=== PATIENT | male | born 1965 | race Caucasian/White ===

== ENCOUNTER 2017-08-26 12:40 | Emergency (ER) | payer OTHER ==
[~2017-08-26] VITALS: Ht 182.9 cm; Wt 131.5 kg
[~2017-08-26 12:40] MED LIST: ARAVA20 MG PO; ASPIRIN325 PO; ATORVASTATIN CA10 MG PO; CALCIUM 500+D1 EAC2 PO; CARDIZEM CD120 MG PO; CARDIZEM CD240 MG PO; CELEXA40 MG PO; CENTRUM SILVER1 EAC4 PO; CYCLOBENZAPRINE10 MG PO; DIABETA 5MG TABL5 MG PO; DIGOXIN250 MCG PO; ETODOLAC500 MG PO; FLECAINIDE ACE100 MG PO; FLOMAX PO; FOLIC ACID PO; FOLIC ACID1 MG PO; FUROSEMIDE 20 M20 M1 PO; FUROSEMIDE 40 M40 M1 PO; HYDROCHLOROTH12.5 MG PO; HYDROCODONE-AP1 EAC6 PO; HYDROXYCHLOROQ200 M1 PO; IBUPROFEN 600600 M1 PO; LASIX 20 MG TAB20 MG PO; LOPRESSOR50 PO; METFORMIN HCL500 MG PO; MULTIVITAMINS PO; NORCO 5-325 TA1 EACH PO; OXYCODONE HCL 55 MG PO; PERCOCET 7.5-31 EACH PO; POTASSIUM20 PO; PROPRANOLOL 4040 M1 PO; SOTALOL 120 MG120 M1 PO; TOPROL XL100 MG PO; TOPROL XL50 MG PO; VITAMIN D31000 UNIT PO; XARELTO10 MG PO; XARELTO20 MG PO
[2017-08-26] MEDS ORDERED: GLUCOTROL5 MG PO (12:57)
[2017-08-26] MEDS ORDERED: LOVASTATIN 20 M20 MG PO (12:57)
[2017-08-26] MEDS ORDERED: CELEXA40 MG PO (12:57)
[2017-08-26] MEDS ORDERED: DIGOXIN250 MCG PO (12:57)
[2017-08-26] MEDS ORDERED: JANUVIA 50 MG T50 MG PO (12:57)
[2017-08-26] MEDS ORDERED: GABAPENTIN 100100 MG PO (12:57)
[2017-08-26] MEDS ORDERED: CENTRUM SILVER1 EAC2 PO (12:58)
[2017-08-26] MEDS ORDERED: ARAVA20 MG PO (12:58)
[2017-08-26 14:25] LABS: ABSOLUTE BASOPHILS 0.1 thou/uL (0.0-0.2); ABSOLUTE EOSINOPHILS 0.3 thou/uL (0.0-0.7); ABSOLUTE LYMPHOCYTES 1.9 thou/uL (0.8-5.3); ABSOLUTE MONOCYTES 1.4 thou/uL (0.0-1.2); ABSOLUTE NEUTROPHILS 8.5 thou/uL (1.6-8.1); BASOPHILS 0.6 %; EOSINOPHILS 2.4 %; HEMATOCRIT 42.3 % (42.0-52.0); HEMOGLOBIN 14.2 gm/dL (14.0-18.0); LYMPHOCYTES 15.3 %; MCH 30.3 pg (26.0-34.0); MCHC 33.5 g/dL (28.0-37.0); MCV 90.6 fL (80.0-100.0); MONOCYTES 11.4 %; MPV 9.2 fl. (7.2-11.1); NUCLEATED RBCS 0 /100WBC; PLATELET COUNT* 193 thou/uL (150-400); POLYS 70.3 %; RBC 4.67 mil/uL (4.50-6.00); RDW-CV 14.9 % (10.5-14.5); WBC 12.1 thou/uL (4.0-11.0)
[2017-08-26 14:37] LABS: CALCIUM 8.7 mg/dL (8.5-10.1); CREATININE 0.7 mg/dL (0.6-1.3); POTASSIUM 3.8 mmol/L (3.5-5.1)
[2017-08-26 14:42] LABS: TOTAL PROTEIN 7.7 g/dL (6.4-8.2)
[2017-08-26 14:43] LABS: INFLUENZA A ANTIGEN None Detected (None Detect); INFLUENZA B ANTIGEN None Detected (None Detect)
[2017-08-26] MEDS ORDERED: DOXYCYCLINE 10100 M1 PO (15:05)
[2017-08-26] MEDS ORDERED: ERYTHROMYCIN E3.5 G3 OPHTHALMIC (15:05)
[2017-08-26] MEDS ORDERED: MUCINEX600 MG PO (15:07)
[2017-08-26 15:21] VITALS: BP 146/81
--- NOTE | 2017-08-27 14:17 | EKG ---
[place] [address] ELECTROCARDIOGRAM REPORT Name: PAPO ROYAL [id number] Admission: 08/26/17 Attend Phys: Discharge: 08/26/17 Date of : 61 Report #: [id number] THIS REPORT FOR: //name// [facility] ED Test Date: 2017-08-26 Test Time: 13:41:43 Pat Name: PAPO ROYAL Department: Room: Gender: Cashier Parking Lot: [employer] HIGHTOWER : 1965 Requested By: Andrea Santos Order Number: [id number] MD: Jaden Choi Measurements Intervals [place] Rate: 83 P: [place]: QRS: 58 QRSD: 118 T: 9 QT: 405 QTc: 476 Interpretive Statements Atrial fibrillation incomplete RBBB Low voltage, precordial leads Compared to ECG 08/08/2015 20:33: Low QRS voltage now present Electronically Signed On 08-27-2017 14:17:07 [employer] WR[employer] by Jaden Choi [email or web address] <ELECTRONICALLY SIGNED> By: Jaden Choi MD, [facility] 08/27/17 1417 1341 40 Jaden Choi MD, FACC /EPI
== END 2017-08-26 15:21 | disposition home or self-care (01) ==
LOC: M.ERS 12:40
PROVIDERS: Physician Assistant
DX: B34.9 Viral infection, unspecified (principal); J18.9 Pneumonia, unspecified organism; I10 Essential (primary) hypertension; E78.00 Pure hypercholesterolemia, unspecified; I48.91 Unspecified atrial fibrillation; E11.9 Type 2 diabetes mellitus without complications

== ENCOUNTER 2021-04-19 10:07 | Emergency (ER) | payer OTHER ==
[~2021-04-19] VITALS: Ht 182.9 cm; Wt 154.2 kg
[~2021-04-19 10:07] MED LIST changes: +CENTRUM SILVER1 EAC2 PO; +DOXYCYCLINE 10100 M1 PO; +ERYTHROMYCIN E3.5 G3 OPHTHALMIC; +GABAPENTIN 100100 MG PO; +GLUCOTROL5 MG PO; +JANUVIA 50 MG T50 MG PO; +LOVASTATIN 20 M20 MG PO; +MUCINEX600 MG PO
[2021-04-19] MEDS ORDERED: XARELTO20 MG PO (10:22)
[2021-04-19] MEDS ORDERED: JANUMET 50-1,01 EACH PO (10:23)
[2021-04-19] MEDS ORDERED: LANOXIN 0.25M0.25 M1 PO (10:23)
[2021-04-19] MEDS ORDERED: LISINOPRIL5 MG PO (10:23)
[2021-04-19] MEDS ORDERED: CARTIA XT300 M1 PO (10:23)
[2021-04-19] MEDS ORDERED: TOPROL XL100 MG PO (10:23)
[2021-04-19] MEDS ORDERED: LOVASTATIN 20 M20 MG PO (10:24)
[2021-04-19] MEDS ORDERED: LASIX 40 MG TAB40 MG PO (10:24)
[2021-04-19] MEDS ORDERED: SERTRALINE HCL100 MG PO (10:24)
[2021-04-19] MEDS ORDERED: GLUCOTROL10 MG PO (10:24)
[2021-04-19] MEDS ORDERED: AMITRIPTYLINE H25 M3 PO (10:25)
[2021-04-19] MEDS ORDERED: SPIRONOLACTONE100 M1 PO (10:25)
[2021-04-19] MEDS ORDERED: NEURONTIN 300M300 M2 PO (10:25)
[2021-04-19] MEDS ORDERED: HYDROCODON-ACE1 EAC7 PO (11:34)
[2021-04-19 11:44] VITALS: BP 151/74
== END 2021-04-19 11:44 | disposition home or self-care (01) ==
LOC: M.ERS 10:07
DX: S42.292A Other displaced fracture of upper end of left humerus, initial encounter for closed fracture (principal); E66.01 Morbid (severe) obesity due to excess calories; I10 Essential (primary) hypertension; E78.00 Pure hypercholesterolemia, unspecified; M06.9 Rheumatoid arthritis, unspecified; I48.91 Unspecified atrial fibrillation; E11.9 Type 2 diabetes mellitus without complications; Z79.899 Other long term (current) drug therapy; Z68.42 Body mass index [BMI] 45.0-49.9, adult; W01.198A Fall on same level from slipping, tripping and stumbling with subsequent striking against other object, initial encounter; Y93.89 Activity, other specified; Y92.89 Other specified places as the place of occurrence of the external cause; Y99.8 Other external cause status